=== PATIENT | male | born 1970 | race Two or more races ===

== ENCOUNTER 2018-03-24 08:39 | Emergency (ER) | payer SELFPAY ==
[2018-03-24] MEDS ORDERED: NS 1,000 ML IV ONE ×2 (08:46→09:01)
--- NOTE | 2018-03-24 08:57 | EDPHY ---
H & P Stated Complaint: Flu like Time Seen by Provider: 03/24/18 08:57 HPI/ROS: HPI: This is a 47-year-old male who presents with Chief Complaint: Flu-like symptoms Location: Body Quality: Flu-like symptoms Duration: 24-48 hours Signs and Symptoms: + fever, no nausea, no vomiting, no diarrhea, no urinary symptoms, no chest pain, no shortness of breath, no wheezing, + nonproductive cough, no sore throat, no neck stiffness, no joint pain, no swollen glands, no ear pain, no rash Timing: Rapid onset, constant Severity: Moderate Context: Patient presents with 24-48 hours of body aches, T-max of a 102 F temporal taken at home, generalized weakness. Patient recently traveled from [facility] was set to return today but he extended his stay due to falling ill. Patient's significant other was seen in this emergency room 2 days prior and diagnosed with viral syndrome for influenza was negative. Did not receive influenza vaccine this year. No history of lung disease. Patient reports that he does have a cough that is nonproductive in nature. Denies any wheezing, nausea, vomiting, abdominal pain, urinary symptoms. Modifying Factors: Has not taken any antipyretics [id number] within 24 hr Comment: ROS: A comprehensive 10 system review of systems is otherwise negative aside from elements mentioned in the history of present illness. MEDICAL/SURGICAL/SOCIAL HISTORY: Medical history: Diabetes mellitus. Surgical history: Denies Social history: Denies alcohol, tobacco, drug use. Family history noncontributory. CONSTITUTIONAL: Ill but nontoxic-appearing middle-aged [place] male, awake and alert, no obvious distress HEENT: Atraumatic and normocephalic, PERRL, EOMI. Nares patent; no rhinorrhea; no nasal mucosal edema. Tympanic membranes clear. Oropharynx clear, no exudate and moist pink mucosa. Airway patent. No lymphadenopathy. No meningismus. Cardiovascular: Normal S1/S2, tachycardia, regular rhythm, without murmur rub or gallop. PULMONARY/CHEST: Symmetrical and nontender. Clear to auscultation bilaterally. Good air movement. No accessory muscle usage. ABDOMEN: Soft, nondistended, nontender, no rebound, no guarding, no peritoneal signs, no masses or organomegaly. No CVAT. EXTREMITIES: 2/2 pulses, strength 5/5, no deformities, no clubbing, no cyanosis or edema. NEUROLOGICAL: no focal neuro deficits. GCS 15. SKIN: Warm and dry, no erythema. no rash. Good capillary refill. Source: Patient Exam Limitations: No limitations - Medical/Surgical History Hx Asthma: No Hx Chronic Respiratory Disease: No Hx Diabetes: Yes Hx Cardiac Disease: No Hx Renal Disease: No Hx Cirrhosis: No Hx Alcoholism: No Hx HIV/AIDS: No Hx Splenectomy or Spleen Trauma: No Other PMH: DM - Social History Smoking Status: Never smoked Constitutional: Initial Vital Signs Temperature (C) 39.7 C H 03/24/18 08:43 Heart Rate 98 03/24/18 08:43 Respiratory Rate 16 03/24/18 08:43 Blood Pressure 144/82 H 03/24/18 08:43 O2 Sat (%) 91 L 03/24/18 08:43 O2 Delivery Mode Room Air Allergies/Adverse Reactions: No Known Allergies Allergy (Unverified 03/24/18 08:45) Home Medications: Medication Instructions Recorded HYDROcodone/HOMATROPINE HYCODA 1 tsp PO Q4-6PRN PRN #120 ml 03/24/18 [Hycodan Syrup (*)] Oseltamivir Phosphate [Tamiflu] 75 mg PO BID 5 Days capsule 03/24/18 Medical Decision Making ED Course/Re-evaluation: Vital signs reviewed and show pyrexia and O2 sats 91% on room air. Lung exam is benign and I doubt pneumonia or need for chest x-ray at this time. IV access and laboratory studies ordered Patient given 2 L normal saline, IV Toradol 30 mg, p. O. Tylenol 1000 mg, IV Solu-Medrol 125 mg, DuoNeb 0933: Labs reviewed. No signs of leukocytosis/anemia/platelet dysfunction/JEANNA/ electrolyte imbalance. Mildly elevated carboxyhemoglobin noted. Glucose 180 but no signs of DKA. 0958: Influenza A positive. Patient's symptoms have been present for less than 48 hr and he has had international travel with history of diabetes mellitus therefore based on CDC guidelines he is a Tamiflu candidate. After 4 hr in the emergency room patient is to be discharged home as he feels better. Vital signs greatly improved. This patient was seen under the supervision of my secondary supervising physician. I evaluated care for this patient with attending. Discussed this patient with Dr. Donnelly who did not see the patient. Differential Diagnosis: Differential diagnosis includes but is not limited to influenza, RSV, viral syndrome, pneumonia, sepsis, dehydration, acute kidney injury. - Data Points Laboratory Results: Laboratory Results 03/24/18 08:55 03/24/18 08:55 03/24/18 03/24/18 03/24/18 08:55 08:55 08:55 WBC 4.69 10^3/uL 10^3/uL (3.80-9.50) RBC 5.16 10^6/uL 10^6/uL (4.40-6.38) Hgb 13.9 g/dL g/dL (13.7-17.5) Hct 41.8 % % (40.0-51.0) MCV 81.0 fL L fL (81.5-99.8) MCH 26.9 pg L pg (27.9-34.1) MCHC 33.3 g/dL g/dL (32.4-36.7) RDW 13.2 % % (11.5-15.2) Plt Count 186 10^3/uL 10^3/uL (150-400) MPV 10.6 fL fL (8.7-11.7) Neut % (Auto) 85.1 % H % (39.3-74.2) Lymph % (Auto) 8.3 % L % (15.0-45.0) [place] % (Auto) 6.2 % % (4.5-13.0) Eos % (Auto) 0.0 % L % (0.6-7.6) Baso % (Auto) 0.2 % L % (0.3-1.7) Nucleat RBC Rel Count 0.0 % % (0.0-0.2) Absolute Neuts (auto) 3.99 10^3/uL 10^3/uL (1.70-6.50) Absolute Lymphs (auto) 0.39 10^3/uL L 10^3/uL (1.00-3.00) Absolute Monos (auto) 0.29 10^3/uL L 10^3/uL (0.30-0.80) Absolute Eos (auto) 0.00 10^3/uL L 10^3/uL (0.03-0.40) Absolute Basos (auto) 0.01 10^3/uL L 10^3/uL (0.02-0.10) Absolute Nucleated RBC 0.00 10^3/uL 10^3/uL (0-0.01) Immature Gran % 0.2 % % (0.0-1.1) Immature Gran # 0.01 10^3/uL 10^3/uL (0.00-0.10) Platelet Estimate TNP Carboxyhemoglobin 1.9 % H % (0-1.5) Sodium Potassium Chloride Carbon Dioxide Anion Gap BUN Creatinine Estimated GFR Glucose Calcium Nasal Influenza A PCR FLU A DETECTED H (NEGATIVE) Nasal Influenza B PCR NEGATIVE FOR FLU B (NEGATIVE) RSV (PCR) NEGATIVE FOR RSV (NEGATIVE) 03/24/18 08:55 WBC RBC Hgb Hct MCV MCH MCHC RDW Plt Count MPV Neut % (Auto) Lymph % (Auto) [place] % (Auto) Eos % (Auto) Baso % (Auto) Nucleat RBC Rel Count Absolute Neuts (auto) Absolute Lymphs (auto) Absolute Monos (auto) Absolute Eos (auto) Absolute Basos (auto) Absolute Nucleated RBC Immature Gran % Immature Gran # Platelet Estimate Carboxyhemoglobin Sodium 134 mEq/L L mEq/L (135-145) Potassium 4.4 mEq/L mEq/L (3.5-5.2) Chloride 102 mEq/L mEq/L (97-110) Carbon Dioxide 22 mEq/l mEq/l (22-31) Anion Gap 10 mEq/L mEq/L (6-14) BUN 10 mg/dL mg/dL (7-23) Creatinine 0.7 mg/dL mg/dL (0.7-1.3) Estimated GFR > 60 Glucose 180 mg/dL H mg/dL (70-100) Calcium 8.5 mg/dL mg/dL (8.5-10.4) Nasal Influenza A PCR Nasal Influenza B PCR RSV (PCR) Medications Given: Discontinued Medications Acetaminophen (Tylenol) 1,000 mg PO EDNOW ONE Stop: 03/24/18 09:03 Last Admin: 03/24/18 09:09 Dose: 1,000 mg Albuterol/Ipratropium (Duoneb) 3 ml IH EDNOW ONE Stop: 03/24/18 09:02 Last Admin: 03/24/18 09:11 Dose: 3 ml Sodium Chloride (Ns) 1,000 mls @ 0 mls/hr IV ONCE ONE; Wide Open PRN Reason: Protocol Stop: 03/24/18 08:47 Last Admin: 03/24/18 09:10 Dose: 1,000 mls Sodium Chloride (Ns) 1,000 mls @ 0 mls/hr IV EDNOW ONE; Wide Open PRN Reason: Protocol Stop: 03/24/18 09:02 Last Admin: 03/24/18 09:10 Dose: 1,000 mls Ibuprofen (Motrin) 600 mg PO EDNOW ONE Stop: 03/24/18 10:04 Last Admin: 03/24/18 10:18 Dose: 600 mg Ketorolac Tromethamine (Toradol) 30 mg IVP EDNOW ONE Stop: 03/24/18 09:03 Last Admin: 03/24/18 09:10 Dose: 30 mg Methylprednisolone Sodium Succinate (Solu-Medrol) 125 mg IVP EDNOW ONE Stop: 03/24/18 09:02 Last Admin: 03/24/18 09:10 Dose: 125 mg Oseltamivir Phosphate (Tamiflu) 75 mg PO EDNOW ONE Stop: 03/24/18 10:00 Last Admin: 03/24/18 10:18 Dose: 75 mg Departure - Departure Disposition: Home, Routine, Self-Care Clinical Impression: Influenza A Condition: Good Instructions: Influenza (ED) Additional Instructions: Rest as much as possible until you are feeling better. Consume a minimum of 8-10 glasses of water or electrolyte fluid replacement drinks that include Gatorade, Powerade, Pedialyte. Eat a bland diet for the next 48 hours and then slowly advance as tolerated. Take Tamiflu as prescribed. Use cough syrup every 4-6 hours as needed for severe cough. Take Tylenol 650 mg every 4 hours and/or Ibuprofen 600 mg every 8 hours with food as needed for pain/fever. Please wash your hands frequently, cover your cough, and stay home until you are symptom free. Referrals: [facility],. [Clinic] - As per Instructions Prescriptions: HYDROcodone/HOMATROPINE HYCODA [Hycodan Syrup (*)] 1 tsp PO Q4-6PRN PRN #120 ml PRN Reason: Cough, Severe Oseltamivir Phosphate [Tamiflu] 75 mg PO BID 5 Days capsule
[2018-03-24] MEDS ORDERED: IPRATROPIUM/ALBUTEROL 3 ML DEYVIAL IH ONE (09:01)
[2018-03-24] MEDS ORDERED: methylPREDNISolone SOD SUCC 125 MG/2 ML VIAL IVP ONE (09:01)
[2018-03-24] MEDS ORDERED: ACETAMINOPHEN 500 MG TAB PO ONE (09:02)
[2018-03-24] MEDS ORDERED: KETOROLAC 30 MG/1 ML SDV IVP ONE (09:02)
[2018-03-24 09:19] LABS: PLATELET COUNT 186 10^3/uL (150-400)
[2018-03-24] MEDS ORDERED: OSELTAMIVIR PHOSPHATE 75 MG CAP PO ONE (09:59)
[2018-03-24] MEDS ORDERED: IBUPROFEN 600 MG TAB PO ONE (10:03)
[2018-03-24 11:26] VITALS: BP 126/78
== END 2018-03-24 11:33 | disposition home or self-care (01) ==
DX: J10.1 Influenza due to other identified influenza virus with other respiratory manifestations (principal); E86.9 Volume depletion, unspecified; E11.9 Type 2 diabetes mellitus without complications
CPT/HCPCS: 96374; J1885; J2930